=== PATIENT | male | born 1980 | race African-American/Black ===

== ENCOUNTER 2017-03-24 14:41 | Emergency (ER) | payer OTHER ==
[~2017-03-24] VITALS: Ht 188 cm; Wt 106.6 kg
[~2017-03-24 14:41] MED LIST: KEFLEX500 MG PO
[2017-03-24 16:19] VITALS: BP 133/76
== END 2017-03-24 16:20 | disposition home or self-care (01) ==
LOC: M.ERS 14:41
DX: S61.211A Laceration without foreign body of left index finger without damage to nail, initial encounter (principal); W25.XXXA Contact with sharp glass, initial encounter; Y93.89 Activity, other specified; Y92.89 Other specified places as the place of occurrence of the external cause; Y99.8 Other external cause status

== ENCOUNTER 2020-04-22 18:14 | Emergency (ER) | payer OTHER ==
[~2020-04-22] VITALS: Ht 185.4 cm; Wt 108.9 kg
[2020-04-22] MEDS ORDERED: TESSALON PERLE100 MG PO (19:12)
[2020-04-22] MEDS ORDERED: ZPAK PO (19:12)
[2020-04-22 19:19] VITALS: BP 136/79
== END 2020-04-22 19:19 | disposition home or self-care (01) ==
LOC: M.ERS 18:14
DX: J98.8 Other specified respiratory disorders (principal); Z20.822 Contact with and (suspected) exposure to COVID-19